=== PATIENT | male | born 1960 | race Caucasian/White ===

== ENCOUNTER 2020-05-31 01:33 | Outpatient (CLI) | payer OTHER, SELFPAY ==
[2020-05-31 21:25] LABS: SARS-CoV-2 RNA PCR Negative
== END 2020-05-31 01:34 | disposition home or self-care (01) ==
LOC: ANHCOVIDDT 01:33
PROVIDERS: PCP Family Medicine; Visit Provider Otolaryngology
DX: Z01.812 Encounter for preprocedural laboratory examination (principal); Z20.828 Contact with and (suspected) exposure to other viral communicable diseases
CPT/HCPCS: 87635; C9803; U0003

== ENCOUNTER 2020-06-03 01:52 | Day surgery (SDC) | payer OTHER, SELFPAY ==
[2020-05-29 11:03] VITALS: BMI 28.2
[2020-06-03] VITALS (10 sets, daily range): BP systolic 95–134; BP diastolic 65–94; PULSE 77–90; RESP 8–16; TEMP 36.4–36.6; O2SAT 97–100
[2020-06-03] MEDS: LACTATED RINGERS 1,000 ML 30 ML IV CONT ×2 (06:30→10:42)
[2020-06-03] MEDS: ACETAMINOPHEN 500 MG TABLET 1000 MG PO (06:41)
--- NOTE | 2020-06-03 06:52 | ECG_ITS ---
Measurements Intervals [place] Rate: 82 P: 66 ME: 170 QRS: 1 QRSD: 86 T: 40 QT: 369 QTc: 431 Interpretive Statements SINUS RHYTHM WITH SINUS ARRHYTHMIA EARLY PRECORDIAL R/S TRANSITION BORDERLINE ECG Electronically Signed On 06-03-2020 7:23:36 [employer] I INSPECTOR by Drake Engel D.O.
--- NOTE | 2020-06-03 06:57 | WPDANESEPPF ---
Anes - Initial Pre Proc Eval Procedure: Operation Date: 06/03/20 07:[address] Guided Bilateral Ethmoidectomy,Bilateral Maxillary Antrostomy, Right Frontal Sinusotomy, Right Sphenoidotomy,Left Yvette Bullosa Resection, Bilateral Turbinate Reduction,With Fusion Protocol - Vitaliy Marroquin MD s Septoplasty - Vitaliy Marroquin MD Date/Time: 06/03/20 06:57 Surgeon: Vitaliy Marroquin MD Pre Op Diagnosis: Nasal polyp Patient Data Age: 59 Gender: M Height: 6 ft 2 in Weight: 101.6 kg Last Vital Signs Temp 36.6 C 06/03/20 06:46 Pulse 90 06/03/20 06:46 Resp 16 06/03/20 06:46 BP 134/86 06/03/20 06:46 Pulse Ox 98 06/03/20 06:46 Allergies Allergy/AdvReac Type Severity Reaction Status Date / Time hydrocodone [From Vicodin] AdvReac Intermediate Nausea and Verified 06/03/20 06:08 Vomiting Home Medications Medication Instructions Recorded Confirmed Type aspirin [Adult Low Dose Aspirin] 81 mg PO QAM 05/29/20 06/03/20 History atorvastatin 20 mg PO QAM 05/29/20 06/03/20 History cholecalciferol (vitamin D3) 125 mcg PO DAILY 05/29/20 06/03/20 History enalapril maleate 2.5 mg PO QAM 05/29/20 06/03/20 History multivitamin,[id number] 1 tablet PO DAILY 05/29/20 06/03/20 History [Complete Multivitamin] omeprazole 40 mg PO DAILY 05/29/20 06/03/20 History Patient hx anesthesia problems: none Family hx anesthesia problems: none PMFSH Past Medical History Medical History Hyperlipidemia Hypertension KATHRYN (obstructive sleep apnea) Social History Social History Smoking packs per day: 1 Smoking cigarettes per day: 20.0 Years smoked: 3 Smoking pack-years: 3.00 Smoking status: Former smoker Tobacco type: cigarettes Smoking end date: 07/05/69 Alcohol intake: current Alcohol use details: TWO DRINKS PER MONTH Living arrangements: with family Spiritual care concerns: No Anes - Eval Final PreProcedure Day of Procedure 06/03/20 06:57 Patient weight: overweight Heart: regular rate and rhythm Lungs: clear to auscultation Airway: Mallampati scale class II Neurological: alert and oriented Last oral intake: >/= 8 hours ASA classification: III Emergent: no Anesthetic plan: proceed Anesthesia type and monitoring: general ETT and standard monitoring Informed Consent: The patient's anesthetic plan and its attendant risks and benefits were discussed with the patient/family/POA. Questions were solicited and answers provided to the satisfaction of the patient/family/POA.
[2020-06-03] MEDS: ONDANSETRON INJ 4 MG/2 ML VIAL IV PUSH (07:14)
--- NOTE | 2020-06-03 07:17 | WPDHPUPDATE1 ---
History and Physical Update Update Date/Time: 06/03/20 07:17 History and Physical has been reviewed, including an updated exam of the patient. There are NO changes in the patient's condition. Risks, benefits, and alternatives have been discussed and questions answered. Patient agrees to proceed with procedure.
[2020-06-03] MEDS: OXYMETAZOLINE HCL 0.05% NAS 15 ML BTL (*BKC) 1 SPRAY NASAL (07:21)
[2020-06-03] MEDS: ceFAZolin 2 GM/D5W 50 ML 2 GM/50 ML BAG IVPB (07:32)
[2020-06-03] MEDS: LIDO 1%/EPINEPHRINE 1:100,000 20 ML VIAL 5 ML INFILTRATE (07:40)
--- NOTE | 2020-06-03 10:33 | PM.PROC ---
Procedure Note - Detailed Date of procedure: 06/03/20 Pre-op diagnosis: Nasal polyp Right maxillary sinus mass, chronic sinusitis, left erinn bullosa, deviated septum. Post-op diagnosis: same Procedure performed: Right frontal sinusotomy, right maxillary antrostomy with tissue removal, bilateral total ethmoidectomy, right sphenoidotomy. Left erinn bullosectomy. Septoplasty and bilateral inferior turbinoplasty Description of procedure: On the date of procedure the patient was met in the preoperative area and risk and benefits of the procedure reviewed with the patient as documented in the H&P and they elected to proceed with surgery. Patient was brought back to the operating room by the anesthesia team and underwent general endotracheal anesthesia. Once an adequate plane of anesthesia was obtained a timeout was performed to assure the patient identification the patient here to be performed were correct. They were.The patient was then prepped and draped in the normal fashion for endoscopic sinus surgery. The diffusion image guidance system was calibrated and used for the entire case. Afrin-soaked pledgets were placed in the nasal cavities bilaterally. 1% lidocaine with 1:100k epinephrine was infiltrated into the septum, turbinates and sinus passages bilaterally. The entire case was performed under endoscopic visualization. The right side was narrowed due to septal deviation.? Thus, septoplasty was required.? A left hemitransfixion incision was made in the left caudal septum and a mucoperichondrial flap was elevated in the usual fashion. The flap was elevated under endoscopic visualization and the remainder of the case was performed with endoscopic assistance. Using a D-knife, an incision was made through the cartilaginous septum with care to preserve the appropriate caudal and dorsal ?L-strut? of cartilage. The cartilage was then disarticulated from the bony-cartilaginous junction and the deviated cartilage was removed. Further deviated bone and cartilage was removed from the maxillary crest and posterior bony septum with care to avoid injury to the mucoperichondrial flap using a combination of dissection and Harman forceps. Once this was completed, the hemitransfixion incision was closed using simple interrupted 4-0 chromic suture. A quilting stitch to reapproximate the mucoperichondrial flaps was then placed using 4-0 plain gut suture on a Arcadio needle. Attention was then directed towards the right side. The middle turbinate was medialized and the osteomeatal complex was identified with a jen probe. Using a 90 degree backbiter, the uncinate process was reflected anteriorly and removed using a combination of sharp and powered dissection. A large polypoid mass had filled the right maxillary sinus and expanded medially distorting the uncinate and lateral wall medially. This was carefully opened up to create an atrostomy. Next, the mass was freed off of the sinus wall and meticiously dissected free from the wall of the sinus. A portion of the lateral part of the maxillary sinus was demucosalized to remove the lesion in its entirety. Appeared consistent with papilloma. Did not visiualize any bony destruction. Polyp tissue encountered was removed with microdebrider. Continuing with the microdebrider, the anterior ethmoid bulla was opened. Careful dissection was carried out posteriorly, through the basal lamella and posterior ethmoid cells until the sphenoid rostrum was identified. A Arianne suction bluntly identified the sphenoid os and the opening was widened with microdebrider and mushroom punch to 5mm. Using an image guided curved suction as well as J-curette, the posterior most ethmoid cell was identified and the ethmoids were bluntly fractured and dissected from posterior to anterior along the base of the skull. The remaining bone fragments were removed with appropriate curved instruments and microdebrider.? Lastly, image guided frontal suction and sinus seeker were
[2020-06-03] MEDS: fentaNYL CITRATE INJ (*CRX) 100 MCG/2 ML VIAL 25 MCG IV PUSH ×5 (10:58→11:25)
[2020-06-03] MEDS: oxyCODONE HCL (*CRX) 5 MG TAB IR PO (11:53)
== END 2020-06-03 12:45 | disposition home or self-care (01) ==
PROVIDERS: PCP Family Medicine; Visit Provider Otolaryngology
PROC: (CPT 31267; principal; 2020-06-03 07:30)
PROC: (CPT 30520; 2020-06-03 07:30)
DX: J34.2 Deviated nasal septum (principal); D14.0 Benign neoplasm of middle ear, nasal cavity and accessory sinuses; J34.89 Other specified disorders of nose and nasal sinuses; J32.9 Chronic sinusitis, unspecified; I10 Essential (primary) hypertension; E78.5 Hyperlipidemia, unspecified; G47.33 Obstructive sleep apnea (adult) (pediatric); Z87.891 Personal history of nicotine dependence
CPT/HCPCS: 31267; 31276; 31287; 31240; 61782; 31255; 30520; 30140; 88305; 88311; 93005; A9270; J0330; J0690; J1100; J2250; J2405; J2704; J3010; J7120